=== PATIENT | female | born 1970 | race Hispanic/Latino ===

== ENCOUNTER 2023-08-13 18:56 | Inpatient (IN) | payer BC ==
[~2023-08-13] VITALS: Ht 152.4 cm; Wt 84.3 kg
[~2023-08-13 18:56] MED LIST: GABA-531 PO; LISI1TAB51 PO; METF-446 PO; METO50TA18 PO; TYL3 PO
[2023-08-13 19:34] LABS: BASOPHILS # (AUTO) 0.03 K/uL (0.00-0.20); BASOPHILS % (AUTO) 0.3 % (0.0-5.0); EOSINOPHILS # (AUTO) 0.12 K/uL (0.00-0.70); HEMATOCRIT 26.9 % (36-48); IMMATURE GRANULOCYTE ABSOLUTE 0.09 K/uL (0-1); LYMPHOCYTES # (AUTO) 1.1 K/uL (1.0-4.8); LYMPHOCYTES % (AUTO) 9.6 % (21.0-51.0); MEAN CORPUSCULAR HEMOGLOBIN 29.7 pg (27.0-33.0); MEAN CORPUSCULAR HGB CONC 34.2 g/dL (32.0-36.0); MEAN CORPUSCULAR VOLUME 86.8 fL (79-99); MONOCYTES # (AUTO) 0.8 K/uL (0.1-1.0); MONOCYTES % (AUTO) 6.9 % (3.0-13.0); NEUTROPHILS # (AUTO) 9.5 K/uL (1.8-7.7); NEUTROPHILS % (AUTO) 81.4 % (40.0-77.0); PLATELET COUNT (AUTO) 226 K/uL (130-400); RED CELL DISTRIBUTION WIDTH 12.7 % (11.0-15.5); WHITE BLOOD COUNT (AUTO) 11.7 K/uL (4.8-10.8)
[2023-08-13 19:57] LABS: POTASSIUM 3.6 mmol/L (3.5-5.1)
[2023-08-13 20:02] LABS: ALBUMIN 2.5 g/dL (3.5-5.0); BILIRUBIN,TOTAL 0.3 mg/dL (0.2-1.0)
[2023-08-13] MEDS ORDERED: IOHEXOL 350 MG/ML 100ML INFUS..BTL IV ONE (20:06)
[2023-08-13] MEDS: ACETAMINOPHEN 500 MG TABLET PO ONE (20:39)
[2023-08-13] MEDS: ZOSYN 3.375GM +NS 50ML IV ONE (20:39)
[2023-08-13] MEDS: 0.9%NACL 1000ML 1,365 ML IV ONE (20:39)
[2023-08-13] MEDS: DiphenhydrAMINE HCL 50 MG/ML VIAL IV ONE (22:44)
[2023-08-13] MEDS: ONDANSETRON 4MG INJ IVP ONE (22:44)
[2023-08-13] MEDS: MORPHINE 2 MG SYG IVP ONE (22:44)
[2023-08-13] MEDS: KETOROLAC 30MG VIAL (30MG/ML) IVP ONE (22:44)
[2023-08-13] MEDS ORDERED: ONDANSETRON 4MG INJ IVP PRN (23:30)
[2023-08-13] MEDS ORDERED: CEFEPIME HCL 2 GM VIAL IVPB SCH (23:30)
[2023-08-13] MEDS ORDERED: VANCOMYCIN PROTOCOL PER PHARMACY IV SCH (23:30)
[2023-08-13] MEDS: CEFEPIME HCL 1 GM VIAL IVPB SCH (23:45)
[2023-08-14] MEDS ORDERED: CEFEPIME HCL 1 GM VIAL IVPB SCH
[2023-08-14] MEDS: CEFEPIME HCL 2 GM VIAL IVPB SCH
[2023-08-14] MEDS: VANCOMYCIN 2GM/500 ML BAG 500 ML IV ONE (01:13)
[2023-08-14 06:13] LABS: BASOPHILS # (AUTO) 0.04 K/uL (0.00-0.20); BASOPHILS % (AUTO) 0.4 % (0.0-5.0); EOSINOPHILS # (AUTO) 0.35 K/uL (0.00-0.70); EOSINOPHILS % (AUTO) 3.6 % (0.0-8.0); HEMATOCRIT 24.8 % (36-48); LYMPHOCYTES # (AUTO) 0.7 K/uL (1.0-4.8); LYMPHOCYTES % (AUTO) 7.2 % (21.0-51.0); MEAN CORPUSCULAR HEMOGLOBIN 29.7 pg (27.0-33.0); MEAN CORPUSCULAR HGB CONC 33.9 g/dL (32.0-36.0); MEAN CORPUSCULAR VOLUME 87.6 fL (79-99); MONOCYTES # (AUTO) 0.7 K/uL (0.1-1.0); MONOCYTES % (AUTO) 7.6 % (3.0-13.0); NEUTROPHILS # (AUTO) 7.8 K/uL (1.8-7.7); NEUTROPHILS % (AUTO) 80.2 % (40.0-77.0); PLATELET COUNT (AUTO) 174 K/uL (130-400); RED BLOOD CELL COUNT(AUTO) 2.83 MIL/uL (4.00-5.50); RED CELL DISTRIBUTION WIDTH 12.7 % (11.0-15.5); WHITE BLOOD COUNT (AUTO) 9.7 K/uL (4.8-10.8)
[2023-08-14 06:33] LABS: ALBUMIN 2.2 g/dL (3.5-5.0); BILIRUBIN,TOTAL 0.4 mg/dL (0.2-1.0); CREATININE 1.1 mg/dL (0.5-1.5); MAGNESIUM 1.5 mg/dL (1.80-2.40); POTASSIUM 3.6 mmol/L (3.5-5.1); TOTAL PROTEIN, SERUM 6.3 g/dL (6.0-8.3)
[2023-08-14] MEDS: INSULIN HUMULIN R 100 UNIT/ML 3ML SQ SCH (07:23)
[2023-08-14 08:01] LABS: HEMOGLOBIN A1C 5.8 % (4.0-6.0)
[2023-08-14 08:50] VITALS: BP 115/80; PULSE 89; RESP 19
[2023-08-14 09:00] VITALS: O2SAT 100
[2023-08-14] MEDS: ENOXAPARIN SODIUM 30 MG/0.3 ML SQ SCH (09:15)
[2023-08-14 11:37] VITALS: BP 112/68; PULSE 94; RESP 19
[2023-08-14] MEDS: MORPHINE 2 MG SYG IVP PRN (11:37)
[2023-08-14] MEDS: DiphenhydrAMINE HCL 50 MG/ML VIAL ONE (11:49)
[2023-08-14] MEDS: DiphenhydrAMINE HCL 50 MG/ML VIAL IV ONE (12:01)
[2023-08-14] MEDS: VANCOMYCIN 1G/250ML KIT 250 ML IV SCH (12:03)
[2023-08-14] MEDS ORDERED: ELTR12.5 PO (12:54)
[2023-08-14] MEDS ORDERED: METO-408 PO (12:54)
[2023-08-14] MEDS ORDERED: LISI1TAB51 PO (12:54)
[2023-08-14] MEDS ORDERED: ALPR1TAB2 PO (12:54)
[2023-08-14] MEDS: ACETAMINOPHEN 325 MG TAB PO PRN (15:50)
[2023-08-14 16:00] VITALS: BP 116/72; PULSE 102; RESP 18
[2023-08-14] MEDS: HYDROMORPHONE 0.5 MG SYG (0.5MG/0.5ML) IVP PRN (18:25)
[2023-08-14 19:15] VITALS: O2SAT 94
[2023-08-14] MEDS ORDERED: POTASSIUM CHLORIDE 20MEQ/100ML 100 ML IV PRN (19:30)
[2023-08-14] MEDS ORDERED: POTASSIUM CHLORIDE 10% ELIXIR 20 MEQ/15 ML UDCUP PO PRN (19:30)
[2023-08-14 20:50] VITALS: BP 99/69; PULSE 90; RESP 18
[2023-08-14] MEDS ORDERED: NON-FORMULARY MEDICATION 1 EACH (Lisinopril/Hydrochlorothiazide (Lisinopril-Hctz 20-12.5 m PO SCH (21:00)
[2023-08-14] MEDS: HYDROCHLOROTHIAZIDE 25 MG TABLET PO SCH (21:03)
[2023-08-14] MEDS: LISINOPRIL 20 MG TABLET PO SCH (21:04)
[2023-08-14] MEDS: MAGNESIUM 2GM PREMIX 50ML 50 ML IV PRN (21:05)
[2023-08-15] VITALS (9 sets, daily range): BP systolic 109–132; BP diastolic 69–82; PULSE 83–96; RESP 17–18; O2SAT 96–97
[2023-08-15 03:56] LABS: HEMATOCRIT 23.5 % (36-48); MEAN CORPUSCULAR HEMOGLOBIN 29.1 pg (27.0-33.0); MEAN CORPUSCULAR HGB CONC 32.8 g/dL (32.0-36.0); MEAN CORPUSCULAR VOLUME 88.7 fL (79-99); RED BLOOD CELL COUNT(AUTO) 2.65 MIL/uL (4.00-5.50); RED CELL DISTRIBUTION WIDTH 12.8 % (11.0-15.5); WHITE BLOOD COUNT (AUTO) 7.3 K/uL (4.8-10.8)
[2023-08-15 04:09] LABS: INR 0.99 (0.85-1.15); PROTHROMBIN TIME 11.5 SEC (9.6-11.6)
[2023-08-15 04:10] LABS: PARTIAL THROMBOPLASTIN TIME 27.2 SEC (26.3-35.5)
[2023-08-15 04:21] LABS: ASPARTATE AMINOTRANSFERASE 9 U/L (10-37); BILIRUBIN,TOTAL 0.3 mg/dL (0.2-1.0); CARBON DIOXIDE 25 mmol/L (21-32); CHLORIDE 105 mmol/L (101-111); CREATININE 0.9 mg/dL (0.5-1.5); GLOMERULAR FILTR. RATE CALC 78 mL/min (>90); GLUCOSE,RANDOM 95 mg/dL (70-105); SODIUM SERUM 137 mmol/L (136-145); UREA NITROGEN, BLOOD 16 mg/dL (7-18)
[2023-08-15 04:22] LABS: ALANINE AMINOTRANSFERASE < 6 U/L (12-78)
[2023-08-15] MEDS: HYDROCODONE/ACETAMINOPHEN 5/325 MG TAB PO PRN (06:02)
[2023-08-15] MEDS: METOPROLOL SUCCINATE 25 MG TAB.SR.24H PO SCH (09:00)
[2023-08-15] MEDS: PROMACTA 12.5 MG PO SCH (09:00)
[2023-08-15] MEDS: 0.9%NACL 1000ML 1,000 ML IV SCH (11:03)
[2023-08-16] VITALS (30 sets, daily range): BP systolic 106–156; BP diastolic 66–94; PULSE 72–95; RESP 15–20; O2SAT 97–99
[2023-08-16 06:55] LABS: HEMATOCRIT 24.8 % (36-48); MEAN CORPUSCULAR HEMOGLOBIN 28.9 pg (27.0-33.0); MEAN CORPUSCULAR HGB CONC 32.3 g/dL (32.0-36.0); MEAN CORPUSCULAR VOLUME 89.5 fL (79-99); RED BLOOD CELL COUNT(AUTO) 2.77 MIL/uL (4.00-5.50); RED CELL DISTRIBUTION WIDTH 12.5 % (11.0-15.5); WHITE BLOOD COUNT (AUTO) 5.5 K/uL (4.8-10.8)
[2023-08-16 07:01] LABS: CREATININE 0.8 mg/dL (0.5-1.5); MAGNESIUM 1.7 mg/dL (1.80-2.40); POTASSIUM 3.9 mmol/L (3.5-5.1)
[2023-08-16] MEDS ORDERED: LIDOCAINE PF 100MG/5ML (2%) SYRINGE 5ML ONE ×2 (08:56→09:00)
[2023-08-16] MEDS ORDERED: MIDAZOLAM HCL 1 MG/ML 2ML VIAL ONE (08:56)
[2023-08-16] MEDS ORDERED: DEXAMETHASONE SOD PHOSPHATE 10MG/ML 1ML VIAL ONE (08:56)
[2023-08-16] MEDS ORDERED: ROCURONIUM BROMIDE 10MG/1ML 5ML VL ONE (08:57)
[2023-08-16] MEDS ORDERED: GLYCOPYRROLATE 0.2 MG/ML 5 ML VIAL ONE (08:57)
[2023-08-16] MEDS ORDERED: SUCCINYLCHOLINE CHLORIDE 20 MG/ML 10 ML VIAL ONE (08:57)
[2023-08-16] MEDS ORDERED: ONDANSETRON 4MG INJ ONE (08:57)
[2023-08-16] MEDS ORDERED: NEOSTIGMINE METHYLSULFATE 1MG/ML IV ONE (08:57)
[2023-08-16] MEDS ORDERED: PROPOFOL 10 MG/ML 20ML VIAL IV ONE (08:57)
[2023-08-16] MEDS ORDERED: FENTANYL CITRATE PF 50 MCG/1 ML 2ML VIAL ONE (08:59)
[2023-08-16] MEDS ORDERED: CEFAZOLIN SODIUM 1 GM VIAL ONE (09:14)
[2023-08-16] MEDS ORDERED: BUPIVACAINE/PF 0.25% 30ML VIAL IJ ONE (09:14)
[2023-08-16] MEDS: CEFAZOLIN SODIUM 1 GM VIAL IRRIG ONE (09:15)
[2023-08-16] MEDS: BUPIVACAINE/PF 0.25% 30ML VIAL IJ ONE (09:15)
[2023-08-16] MEDS: 0.9%NACL 1000ML 1,000 ML IV ONE (09:42)
[2023-08-16] MEDS: ONDANSETRON 4MG INJ ONE (10:03)
[2023-08-16] MEDS: MEPERIDINE-PF 25 MG/ML SYG ONE ×2 (10:04→10:24)
[2023-08-16] MEDS: OXYCODONE/ACETAMIN 5/325MG TAB PO PRN (15:31)
[2023-08-16] MEDS: FAMOTIDINE 20MG VIAL IV SCH (21:27)
[2023-08-16] MEDS: HYDROMORPHONE 1 MG INJ IVP PRN (21:29)
[2023-08-17] VITALS (7 sets, daily range): BP systolic 114–124; BP diastolic 77–87; PULSE 75–84; RESP 18–20; O2SAT 98–100
[2023-08-17 05:59] LABS: HEMATOCRIT 23.8 % (36-48); MEAN CORPUSCULAR HGB CONC 33.2 g/dL (32.0-36.0); MEAN CORPUSCULAR VOLUME 87.5 fL (79-99); RED BLOOD CELL COUNT(AUTO) 2.72 MIL/uL (4.00-5.50); RED CELL DISTRIBUTION WIDTH 12.8 % (11.0-15.5); WHITE BLOOD COUNT (AUTO) 5.9 K/uL (4.8-10.8)
[2023-08-17 06:17] LABS: CREATININE 0.8 mg/dL (0.5-1.5); POTASSIUM 3.6 mmol/L (3.5-5.1)
[2023-08-17 20:54] LABS: INR 0.98 (0.85-1.15); PROTHROMBIN TIME 11.4 SEC (9.6-11.6)
[2023-08-18] VITALS (9 sets, daily range): BP systolic 114–141; BP diastolic 76–94; PULSE 70–85; RESP 17–20; TEMP 98; O2SAT 97–98
[2023-08-18 05:54] LABS: HEMATOCRIT 24.7 % (36-48); MEAN CORPUSCULAR VOLUME 90.8 fL (79-99); RED BLOOD CELL COUNT(AUTO) 2.72 MIL/uL (4.00-5.50); RED CELL DISTRIBUTION WIDTH 12.9 % (11.0-15.5); WHITE BLOOD COUNT (AUTO) 5.2 K/uL (4.8-10.8)
[2023-08-18 06:24] LABS: CREATININE 0.9 mg/dL (0.5-1.5); MAGNESIUM 1.4 mg/dL (1.80-2.40); POTASSIUM 3.7 mmol/L (3.5-5.1)
[2023-08-18] MEDS: KCL 20 MEQ ERTAB PO PRN (12:43)
[2023-08-19] VITALS (8 sets, daily range): BP systolic 120–148; BP diastolic 77–91; PULSE 76–84; RESP 16–18; O2SAT 100
[2023-08-19 03:29] LABS: HEMATOCRIT 26.6 % (36-48); MEAN CORPUSCULAR HEMOGLOBIN 28.9 pg (27.0-33.0); MEAN CORPUSCULAR VOLUME 90.5 fL (79-99); NUCLEATED RED BLOOD CELLS 0.4 % (0.0-0.19); RED BLOOD CELL COUNT(AUTO) 2.94 MIL/uL (4.00-5.50); RED CELL DISTRIBUTION WIDTH 12.8 % (11.0-15.5); WHITE BLOOD COUNT (AUTO) 5.1 K/uL (4.8-10.8)
[2023-08-19 03:53] LABS: CREATININE 0.9 mg/dL (0.5-1.5); MAGNESIUM 1.9 mg/dL (1.80-2.40); POTASSIUM 3.7 mmol/L (3.5-5.1)
[2023-08-20] VITALS (8 sets, daily range): BP systolic 107–141; BP diastolic 74–86; PULSE 76–86; RESP 15–18; O2SAT 100
[2023-08-20] MEDS: VANCOMYCIN 1G/250ML KIT 250 ML IV SCH (12:00)
[2023-08-20] MEDS ORDERED: CEFEPIME HCL 1 GM VIAL IVPB SCH (12:00)
[2023-08-20] MEDS ORDERED: VANCOMYCIN PROTOCOL PER PHARMACY IV SCH (12:00)
[2023-08-21 04:19] VITALS: BP 116/70; PULSE 69; RESP 18
[2023-08-21 08:00] VITALS: BP 102/62; PULSE 83; RESP 14; O2SAT 100
[2023-08-21 12:00] VITALS: BP 116/88; PULSE 79; RESP 15
== END 2023-08-21 13:49 | disposition home health service (06) | DRG 854 ==
LOC: EDH 18:56 → MERGE 23:11 → EDHIP 23:11 → WSH 08-14 07:02 → 4BH 08-17 19:00
PROVIDERS: ADMIT Internal Medicine Infectious Disease; ATTEND Internal Medicine Infectious Disease
PROC: 0W9F0ZZ Drainage of Abdominal Wall, Open Approach (ICD-10-PCS; principal; 2023-08-16 08:52)
DX: A41.9 Sepsis, unspecified organism (principal); D69.3 Immune thrombocytopenic purpura; L02.211 Cutaneous abscess of abdominal wall; L03.311 Cellulitis of abdominal wall; Z16.24 Resistance to multiple antibiotics; Z16.12 Extended spectrum beta lactamase (ESBL) resistance; Z16.11 Resistance to penicillins; I10 Essential (primary) hypertension; E66.9 Obesity, unspecified; E11.9 Type 2 diabetes mellitus without complications; B95.62 Methicillin resistant Staphylococcus aureus infection as the cause of diseases classified elsewhere; D64.9 Anemia, unspecified; E83.42 Hypomagnesemia; F41.9 Anxiety disorder, unspecified; Z83.3 Family history of diabetes mellitus; Z87.442 Personal history of urinary calculi; Z79.899 Other long term (current) drug therapy; Z88.5 Allergy status to narcotic agent; Z68.36 Body mass index [BMI] 36.0-36.9, adult
CPT/HCPCS: 36415; 74177; 80048; 80053; 80202; 82948; 83036; 83605; 83735; 85025; 85027; 85610; 85730; 87040; 87070; 87076; 87077; 87186; A6266; G0378; J0330; J0690; J0692; J1100; J1170; J1200; J1650; J1885; J2001; J2175; J2250; J2270; J2405; J2543; J2704; J2710; J3010; J3370; J3475; J3490; J7030; Q9967; A4215; A4216; A4221; A4222; A4223; A4452; A4930; J0665

== ENCOUNTER 2024-01-13 21:15 | Emergency (ER) | payer BC ==
[~2024-01-13] VITALS: Ht 152.4 cm; Wt 86.2 kg
[~2024-01-13 21:15] MED LIST changes: +ALPR1TAB2 PO; +ELTR12.5 PO; +METO-408 PO
[2024-01-13 21:52] LABS: APPEARANCE,URINE CLEAR (CLEAR); BILIRUBIN,URINE NEGATIVE (NEGATIVE); COLOR,URINE YELLOW (YELLOW); GLUCOSE, URINE (UA) NEGATIVE (NEGATIVE); KETONES,URINE NEGATIVE (NEGATIVE); LEUKOCYTE ESTERASE ,URINE NEGATIVE Leu/uL (NEGATIVE); NITRATE,URINE NEGATIVE (NEGATIVE); OCCULT BLOOD,URINE LARGE (NEGATIVE); PH,URINE 6.5 (5.0-8.0); PROTEIN,URINE NEGATIVE (NEGATIVE); UROBILINOGEN,URINE 0.2 mg/dL (0.2-1.0)
[2024-01-13 21:54] LABS: ADD UA MICROSCOPIC YES
[2024-01-13 22:07] LABS: BASOPHILS # (AUTO) 0.04 K/uL (0.00-0.20); EOSINOPHILS # (AUTO) 0.09 K/uL (0.00-0.70); EOSINOPHILS % (AUTO) 2.3 % (0.0-8.0); HEMATOCRIT 32.6 % (36-48); IMMATURE GRANULOCYTE ABSOLUTE 0.01 K/uL (0-1); LYMPHOCYTES # (AUTO) 1.1 K/uL (1.0-4.8); LYMPHOCYTES % (AUTO) 27.1 % (21.0-51.0); MEAN CORPUSCULAR HEMOGLOBIN 28.5 pg (27.0-33.0); MEAN CORPUSCULAR HGB CONC 33.4 g/dL (32.0-36.0); MEAN CORPUSCULAR VOLUME 85.3 fL (79-99); MONOCYTES # (AUTO) 0.3 K/uL (0.1-1.0); MONOCYTES % (AUTO) 7.7 % (3.0-13.0); NEUTROPHILS # (AUTO) 2.4 K/uL (1.8-7.7); NEUTROPHILS % (AUTO) 61.6 % (40.0-77.0); PLATELET COUNT (AUTO) 236 K/uL (130-400); RED BLOOD CELL COUNT(AUTO) 3.82 MIL/uL (4.00-5.50); RED CELL DISTRIBUTION WIDTH 17.6 % (11.0-15.5); WHITE BLOOD COUNT (AUTO) 3.9 K/uL (4.8-10.8)
[2024-01-13 22:20] LABS: CREATININE 2.5 mg/dL (0.5-1.0); POTASSIUM 4.2 mmol/L (3.5-5.1)
[2024-01-13 22:27] LABS: ALBUMIN 3.2 g/dL (3.5-5.0); BILIRUBIN,TOTAL 0.4 mg/dL (0.2-1.0); TOTAL PROTEIN, SERUM 6.6 g/dL (6.0-8.3)
[2024-01-13] MEDS: LACTATED RINGERS 1000ML 909 ML IV ONE (22:29)
[2024-01-13] MEDS: FENTANYL CITRATE PF 50 MCG/1 ML 2ML VIAL IVP ONE (22:42)
[2024-01-13] MEDS ORDERED: TAMS-1 PO (23:41)
[2024-01-14 00:14] VITALS: BP 156/68; PULSE 66; RESP 20; O2SAT 100
[2024-01-14] MEDS: TAMSULOSIN HCL 0.4 MG CAP.ER.24H PO ONE (00:20)
[2024-01-14] MEDS: HYDROCODONE/ACETAMINOPHEN 10/325 MG TAB PO ONE (00:21)
== END 2024-01-14 00:42 | disposition home or self-care (01) ==
LOC: EDH 21:15
DX: N20.0 Calculus of kidney (principal); E11.9 Type 2 diabetes mellitus without complications; E78.00 Pure hypercholesterolemia, unspecified; I10 Essential (primary) hypertension; Z79.84 Long term (current) use of oral hypoglycemic drugs; Z79.899 Other long term (current) drug therapy; Z87.442 Personal history of urinary calculi; Z88.5 Allergy status to narcotic agent; Z98.890 Other specified postprocedural states
CPT/HCPCS: 99284; 74176; 96374; 96361; 80053; 85025; 81001; 36415; J7120; J3010

== ENCOUNTER → 2024-01-14 | Emergency (ER) | payer BC ==
[~2024-01-14] VITALS: Ht 152.4 cm; Wt 83.9 kg
[~2024-01-14] MED LIST changes: +TAMS-1 PO
[2024-01-14 17:05] VITALS: BP 176/102; PULSE 97; RESP 16
== END ==
LOC: EDH 17:03
DX: Z53.21 Procedure and treatment not carried out due to patient leaving prior to being seen by health care provider (principal); R10.9 Unspecified abdominal pain; M54.9 Dorsalgia, unspecified; R50.9 Fever, unspecified; R11.0 Nausea

== ENCOUNTER → 2024-12-31 | Outpatient (CLI) | payer OTHER ==
[~2024-12-31] MED LIST changes: -TAMS-1 PO; +TAMS-55 PO
--- NOTE | 2025-01-01 11:15 | HMCIMG ---
EXAM: CT Cardiac calcium scoring. CLINICAL HISTORY: Screening. TECHNIQUE: Thin collimated axial CT cardiac images were obtained. A CT scan is done according to ALARA (As Low As Reasonably Achievable). CONTRAST: None. COMPARISON: None provided. FINDINGS: Calcium Score: VESSEL Number of lesions Volume mm3 Equi. Mass/mg Calcium score LM 1 92.3 - 118.5 LAD 8 1149.3 - 1501.2 LCX 3 1046.7 - 1326.8 RCA 4 1345.0 - 1716.4 Total 16 3633.8 - 4662.9 IMPRESSION: The total calcium score is 4662.9. 99th percentile. /[place]
== END | disposition home or self-care (01) ==
LOC: RAH 13:50
PROVIDERS: ATTEND Internal Medicine Medical Oncology
DX: Z13.6 Encounter for screening for cardiovascular disorders (principal)
CPT/HCPCS: 75571